=== PATIENT | female | born 1965 | race Caucasian/White ===

== ENCOUNTER 2016-03-18 13:47 | Emergency (ER) | payer MEDICARE ==
[~2016-03-18] VITALS: Ht 170.2 cm; Wt 84.0 kg
[2016-03-18 14:50] LABS: HEMATOCRIT 42.1 % (36.0-46.0); MCH 32.4 PG (29.0-34.0); MCV 98.1 FL (83-99); MEAN PLAT.VOLUME 11.2 uM^3 (9.5-12.4); PLATELET COUNT 174 K/uL (156-360); RBC DIS.WIDTH-CV 12.7 % (11.8-14.6); RED BLOOD COUNT 4.29 M/uL (3.80-5.20); WHITE BLOOD COUNT 3.9 K/uL (4.1-10.2)
[2016-03-18 14:57] LABS: CHLORIDE 108 mEq/L (99-109); POTASSIUM 4.8 mEq/L (3.7-5.4); SODIUM 142 mEq/L (136-147)
[2016-03-18 14:59] LABS: GLUCOSE 75 mg/dL (70-99)
[2016-03-18 15:00] LABS: ANION GAP 13 MEQ/L (2-14)
[2016-03-18 15:03] LABS: GFR ESTIMATE (CALCULATED) > 59 mL/min/
[2016-03-18 15:04] LABS: UREA NITROGEN (BUN) 9 mg/dL (9-23)
[2016-03-18 15:10] LABS: TROP-I INTERPRETATION NEGATIVE; TROPONIN-I < 0.01 ng/mL (0.0-0.30)
[2016-03-18 15:31] LABS: D-DIMER ELISA 0.23 mg/L FEU (< 0.57)
[2016-03-18 16:04] LABS: TOTAL BILIRUBIN 0.4 mg/dL (0.0-1.0)
[2016-03-18 16:05] LABS: ALKALINE PHOSPHATASE 61 IU/L (3-129)
[2016-03-18 16:08] LABS: DIRECT BILIRUBIN 0.2 mg/dL (0.0-0.3)
[2016-03-18 16:09] LABS: LIPASE 22 U/L (1.0-51.0)
[2016-03-18 17:06] LABS: TROP-I INTERPRETATION NEGATIVE; TROPONIN-I < 0.01 ng/mL (0.0-0.30)
[2016-03-18 17:33] VITALS: BP 130/72
== END 2016-03-18 17:36 | disposition home or self-care (01) ==
LOC: EME 13:47
PROVIDERS: Nurse Practitioner Family
DX: R07.89 Other chest pain (principal); R10.13 Epigastric pain; Z79.82 Long term (current) use of aspirin
CPT/HCPCS: 71020; 80048; 80076; 83690; 84484; 85027; 85379; 93005; 99281; 99283